=== PATIENT | male | born 1995 | race Caucasian/White ===

== ENCOUNTER 2022-11-13 16:14 | Emergency (ER) | payer BC, SELFPAY ==
[~2022-11-13 16:14] MED LIST: Iopamidol-370 76% 500 ML MDV (1 ML CHARGE) ONE
[2022-11-13] MEDS ORDERED: fentaNYL 50 mcg/mL 1 mL Vial ONE (17:15)
[2022-11-13] MEDS ORDERED: Bupivacaine 0.25% 10 ML VIAL ONE (17:48)
[2022-11-13] MEDS ORDERED: Boostrix 0.5 ML (Tdap) VIAL (>/=7 yrs of age) ONE (17:49)
[2022-11-13] MEDS ORDERED: Morphine 4 MG/ML VIAL ONE (18:22)
[2022-11-13] MEDS ORDERED: Bacitracin 1 PK ONE (19:32)
== END 2022-11-13 19:58 | disposition home or self-care (01) ==
LOC: ERS 16:14
DX: S52.502A Unspecified fracture of the lower end of left radius, initial encounter for closed fracture (principal); S52.602A Unspecified fracture of lower end of left ulna, initial encounter for closed fracture; S22.32XA Fracture of one rib, left side, initial encounter for closed fracture; V69.88XA Occupant (driver) (passenger) of heavy transport vehicle injured in other specified transport accidents, initial encounter; Z23 Encounter for immunization
CPT/HCPCS: 25565; 71045; 71260; 72128; 72131; 72170; 74177; 90471; 90715; 96374; 96375; G0390; J2270; J3010; Q9967; S0020

== ENCOUNTER 2022-11-17 22:59 | Emergency (ER) | payer SELFPAY ==
[2022-11-18] MEDS ORDERED: Acetaminophen/Codeine 30-300mg Tablet ONE (01:01)
[2022-11-18] MEDS ORDERED: Ketorolac Tromethamine 30 MG/ML VIAL ONE (01:06)
[2022-11-18] MEDS ORDERED: Clindamycin/D5W 300 MG/50 ML BAG ONE (01:07)
[2022-11-18] MEDS ORDERED: Clindamycin/D5W 600 mg/50 ml Premix Bag ONE (01:07)
[2022-11-18] MEDS ORDERED: fentaNYL 50 mcg/mL 1 mL Vial ONE (01:11)
[2022-11-18] MEDS ORDERED: diphenhydrAMINE 50 MG/ML VIAL ONE (01:35)
== END 2022-11-18 03:28 | disposition home or self-care (01) ==
LOC: ERS 22:59
DX: M79.604 Pain in right leg (principal); L03.116 Cellulitis of left lower limb
CPT/HCPCS: 96374; 96375; J1200; J1885; J3010; J3490